=== PATIENT | female | born 1975 | race Caucasian/White ===

== ENCOUNTER 2016-11-13 00:03 | Emergency (ER) | payer OTHER ==
[~2016-11-13] VITALS: Ht 157.5 cm; Wt 85.6 kg
[2016-11-13 01:40] LABS: MCH 29.3 PG (29.0-34.0); MCHC 33.4 G/DL (30.0-36.0); MCV 87.6 FL (83-99); MEAN PLAT.VOLUME 9.3 uM^3 (9.5-12.4); PLATELET COUNT 279 K/uL (156-360); RBC DIS.WIDTH-SD 38.6 % (39-53); RED BLOOD COUNT 4.68 M/uL (3.80-5.20); WHITE BLOOD COUNT 12.8 K/uL (4.1-10.2)
[2016-11-13 01:52] LABS: CHLORIDE 108 mEq/L (99-109); POTASSIUM 3.5 mEq/L (3.7-5.4); SODIUM 144 mEq/L (136-147)
[2016-11-13 01:54] LABS: GLUCOSE 100 mg/dL (70-99)
[2016-11-13 01:55] LABS: ANION GAP 8 MEQ/L (2-14)
[2016-11-13 01:56] LABS: TOTAL BILIRUBIN 0.3 mg/dL (0.0-1.0)
[2016-11-13 01:57] LABS: ALKALINE PHOSPHATASE 76 IU/L (3-129)
[2016-11-13 01:58] LABS: GFR ESTIMATE (CALCULATED) > 59 mL/min/
[2016-11-13 01:59] LABS: UREA NITROGEN (BUN) 11 mg/dL (9-23)
[2016-11-13 02:01] LABS: LIPASE 72 U/L (1.0-51.0)
[2016-11-13 02:06] LABS: QUANTITATIVE HCG < 4.0 MIU/ML
[2016-11-13] MEDS ORDERED: ZOFRAN8 MG PO (03:37)
[2016-11-13] MEDS ORDERED: PERCOCET 5/31 TABLET PO (03:37)
[2016-11-13 05:41] LABS: ADD MIUA? NO; BILIRUBIN NEGATIVE; BLOOD NEGATIVE; COLOR COLORLESS ((YELLOW)); GLUCOSE (STRIP) NEGATIVE; KETONES NEGATIVE; LEUKOCYTES NEGATIVE; NITRITE NEGATIVE; PROTEIN (STRIP) NEGATIVE; SPECIFIC GRAVITY 1.019 (1.000-1.030); UCUL ADDED? NO; UROBILINOGEN 0.2 MG/DL (0.2-1.0)
[2016-11-13 05:55] VITALS: BP 130/80
[2016-11-19] MEDS ORDERED: NORCO 5/3251 TABLET PO (11:16)
[2016-11-19] MEDS ORDERED: ZOFRAN8 MG PO (11:16)
[2016-11-19] MEDS ORDERED: REGLAN5 MG PO (11:17)
[2016-11-19] MEDS ORDERED: IMITREX50 MG PO (11:18)
[2016-11-19] MEDS ORDERED: XANAX0.25 MG PO (11:19)
== END 2016-11-13 05:55 | disposition home or self-care (01) ==
LOC: EME 00:03
PROVIDERS: Emergency Medicine
DX: K80.20 Calculus of gallbladder without cholecystitis without obstruction (principal); R74.8 Abnormal levels of other serum enzymes
CPT/HCPCS: 74177; 76705; 80053; 81003; 83690; 84702; 85027; 99281; 99285; J2270; J2405; J7030; S0028

== ENCOUNTER 2016-11-17 15:55 | Emergency (ER) | payer OTHER ==
[~2016-11-17] VITALS: Ht 157.5 cm; Wt 85.1 kg
[~2016-11-17 15:55] MED LIST: PERCOCET 5/31 TABLET PO; ZOFRAN8 MG PO
[2016-11-17 16:43] LABS: HEMATOCRIT 38.7 % (36.0-46.0); MCH 29.3 PG (29.0-34.0); MCHC 33.9 G/DL (30.0-36.0); MCV 86.6 FL (83-99); MEAN PLAT.VOLUME 9.4 uM^3 (9.5-12.4); PLATELET COUNT 250 K/uL (156-360); RBC DIS.WIDTH-CV 11.9 % (11.8-14.6); RBC DIS.WIDTH-SD 37.7 % (39-53); RED BLOOD COUNT 4.47 M/uL (3.80-5.20)
[2016-11-17 16:51] LABS: CHLORIDE 105 mEq/L (99-109); SODIUM 140 mEq/L (136-147)
[2016-11-17 16:53] LABS: GLUCOSE 163 mg/dL (70-99)
[2016-11-17 16:54] LABS: ANION GAP 6 MEQ/L (2-14)
[2016-11-17 16:55] LABS: TOTAL BILIRUBIN 0.3 mg/dL (0.0-1.0)
[2016-11-17 16:56] LABS: ALKALINE PHOSPHATASE 68 IU/L (3-129)
[2016-11-17 16:57] LABS: GFR ESTIMATE (CALCULATED) > 59 mL/min/
[2016-11-17 16:58] LABS: UREA NITROGEN (BUN) 10 mg/dL (9-23)
[2016-11-17 17:00] LABS: LIPASE 78 U/L (1.0-51.0)
[2016-11-17 17:06] LABS: QUANTITATIVE HCG < 4.0 MIU/ML
[2016-11-17 17:50] LABS: ADD MIUA? NO; BILIRUBIN NEGATIVE; BLOOD NEGATIVE; COLOR STRAW ((YELLOW)); GLUCOSE (STRIP) NEGATIVE; KETONES NEGATIVE; LEUKOCYTES NEGATIVE; NITRITE NEGATIVE; PROTEIN (STRIP) NEGATIVE; SPECIFIC GRAVITY 1.005 (1.000-1.030); UCUL ADDED? NO; UROBILINOGEN 0.2 MG/DL (0.2-1.0)
[2016-11-17] MEDS ORDERED: REGLAN5 MG PO (19:57)
[2016-11-17] MEDS ORDERED: NORCO 5/3251 TABLET PO (20:07)
[2016-11-17 20:25] VITALS: BP 134/81
[2016-11-19] MEDS ORDERED: NORCO 5/3251 TABLET PO (11:16)
[2016-11-19] MEDS ORDERED: ZOFRAN8 MG PO (11:16)
[2016-11-19] MEDS ORDERED: REGLAN5 MG PO (11:17)
[2016-11-19] MEDS ORDERED: IMITREX50 MG PO (11:18)
[2016-11-19] MEDS ORDERED: XANAX0.25 MG PO (11:19)
== END 2016-11-17 20:30 | disposition home or self-care (01) ==
LOC: EME 15:55
PROVIDERS: Physician Assistant Medical
DX: K80.20 Calculus of gallbladder without cholecystitis without obstruction (principal); R10.9 Unspecified abdominal pain; R11.2 Nausea with vomiting, unspecified
CPT/HCPCS: 76705; 80053; 81003; 83690; 84702; 85027; 99281; 99285; J1885; J2270; J2405; J2765; J7030

== ENCOUNTER 2016-11-19 14:09 | Day surgery (SDC) | payer OTHER ==
[~2016-11-19] VITALS: Ht 157.5 cm; Wt 81.6 kg
[~2016-11-19 14:09] MED LIST changes: +IMITREX50 MG PO; +NORCO 5/3251 TABLET PO; +REGLAN5 MG PO; +XANAX0.25 MG PO
[2016-11-19 15:08] VITALS: BP 127/83
[2016-11-19 15:25] LABS: INTER. NORMALIZED RATIO 1.1; PROTHROMBIN TIME 10.7 (9.2-11.2)
[2016-11-19] MEDS ORDERED: ENDOCET 5-3251 EACH PO (20:31)
[2016-11-19] MEDS ORDERED: COLACE100 MG PO (20:31)
[2016-11-19 22:00] VITALS: BP 138/78
[2016-11-19 23:00] VITALS: BP 134/73
== END 2016-11-19 23:00 | disposition home or self-care (01) ==
LOC: SDC 14:09
PROVIDERS: Thoracic Surgery (Cardiothoracic Vascular Surgery)
PROC: 0FT44ZZ Resection of Gallbladder, Percutaneous Endoscopic Approach (ICD-10-PCS; principal; 2016-11-19)
DX: K80.10 Calculus of gallbladder with chronic cholecystitis without obstruction (principal); G43.909 Migraine, unspecified, not intractable, without status migrainosus; F41.9 Anxiety disorder, unspecified; Z82.5 Family history of asthma and other chronic lower respiratory diseases; Z83.3 Family history of diabetes mellitus; Z88.1 Allergy status to other antibiotic agents
CPT/HCPCS: 85610; 88304; J0690; J1100; J1170; J1885; J2175; J2405; J3010